=== PATIENT | female | born 1940 | race Asian ===

== ENCOUNTER 2019-11-03 08:34 | Emergency (ER) | payer OTHER ==
[~2019-11-03] VITALS: Ht 165.1 cm; Wt 78.0 kg
[2019-11-03 10:15] VITALS: BP 121/65; TEMP 97.8
== END 2019-11-03 10:15 | disposition home or self-care (01) ==
LOC: ED 08:34
PROC: 2W3QX1Z Immobilization of Right Lower Leg using Splint (ICD-10-PCS; principal; 2019-11-03)
DX: S82.491A Other fracture of shaft of right fibula, initial encounter for closed fracture (principal); W19.XXXA Unspecified fall, initial encounter; Y93.89 Activity, other specified; Y92.89 Other specified places as the place of occurrence of the external cause
CPT/HCPCS: 96372; 99283; J1885

== ENCOUNTER 2021-02-28 12:22 | Emergency (ER) | payer OTHER ==
[~2021-02-28] VITALS: Ht 165.1 cm; Wt 78.0 kg
[2021-02-28 12:22] VITALS: TEMP 97.6
[2021-02-28 14:05] VITALS: BP 159/98
== END 2021-02-28 14:05 | disposition home or self-care (01) ==
LOC: ED 12:22
DX: S16.1XXA Strain of muscle, fascia and tendon at neck level, initial encounter (principal); S50.11XA Contusion of right forearm, initial encounter; S80.12XA Contusion of left lower leg, initial encounter; V43.52XA Car driver injured in collision with other type car in traffic accident, initial encounter; Y92.488 Other paved roadways as the place of occurrence of the external cause
CPT/HCPCS: 99283

== ENCOUNTER 2022-07-07 10:51 | Outpatient (CLI) | payer OTHER | END 2022-07-07 19:50 | disposition home or self-care (01) | LOC: LABW 10:51 | PROVIDERS: ATTEND Internal Medicine Gastroenterology | DX: K64.0 First degree hemorrhoids (principal) | CPT/HCPCS: 82272 ==